=== PATIENT | male | born 1940 | race Caucasian/White ===

== ENCOUNTER 2021-03-11 18:05 | Inpatient (IN) | payer MEDICARE, MEDICAID, SELFPAY ==
[~2021-03-11] VITALS: Ht 172.7 cm; Wt 49.9 kg
[2021-03-11 18:05] VITALS: BP_SYST 153
--- NOTE | 2021-03-11 18:05 | NUR ---
Placed in room 2 . Placed on engine monitor, blood pressure machine and pulse oximeter. To gown for exam. Side rails up. Report given to DARIO VILLAFUERTE.
--- NOTE | 2021-03-11 18:07 | NUR ---
Patient transported to radiology via GURNEY, accompanied by STAFF.
[2021-03-11] MEDS ORDERED: ASPIRIN 325 MG TABLET PO ONE (18:30)
[2021-03-11] MEDS ORDERED: ASPIRIN 300 MG/SUPP.RECT SUPP RC ONE (18:45)
[2021-03-11 18:53] LABS: BASOPHILS # (AUTO) 0.1 K/uL (0.0-0.2); BASOPHILS % (AUTO) 1.1 % (0.0-2.0); EOSINOPHILS # (AUTO) 0.3 K/uL (0.0-0.4); EOSINOPHILS % (AUTO) 2.2 % (0.0-4.0); HEMATOCRIT 40.6 % (36-54); HEMOGLOBIN 13.3 g/dL (14.0-18.0); LYMPHOCYTES % (AUTO) 17.8 % (20.5-51.5); MEAN CORPUSCULAR HEMOGLOBIN 29 pg (27-31); MEAN CORPUSCULAR HGB CONC 33 % (32-36); MEAN CORPUSCULAR VOLUME 88 fL (79.0-98.0); MONOCYTES # (AUTO) 0.9 K/uL (0.0-1.0); MONOCYTES % (AUTO) 7.7 % (1.7-9.3); NEUTROPHILS # (AUTO) 8.2 K/uL (1.8-7.7); NEUTROPHILS % (AUTO) 71.2 % (40.0-70.0); PLATELET COUNT (AUTO) 138 K/uL (130-430); RED BLOOD CELL COUNT(AUTO) 4.62 MIL/uL (4.2-6.2); RED CELL DISTRIBUTION WIDTH 14.6 % (9.0-15.0); WHITE BLOOD COUNT (AUTO) 11.5 K/uL (4.8-10.8)
[2021-03-11 19:07] LABS: CALCIUM 8.5 mg/dL (8.4-11.0); CHLORIDE 97 mmol/L (98-107); CREATININE 0.73 mg/dL (0.55-1.30); GLUCOSE 83 mg/dL (70-99); POTASSIUM 3.6 mmol/L (3.5-5.1); SODIUM SERUM 135 mmol/L (136-145); UREA NITROGEN, BLOOD 14 mg/dL (8-21)
[2021-03-11 19:15] LABS: ALANINE AMINOTRANSFERASE 26 U/L (12-78); ALBUMIN 3.2 g/dL (3.4-4.8); ASPARTATE AMINOTRANSFERASE 20 U/L (10-37); TOTAL BILIRUBIN 0.7 mg/dL (0.0-1.0)
--- NOTE | 2021-03-11 19:16 | NUR ---
report to [facility]
[2021-03-11 19:19] LABS: ANION GAP < 3 (5-15)
--- NOTE | 2021-03-11 20:22 | NUR ---
191 Received report to assume pt care. Pt is resting on gurney, asleep in nad. Vss. Pt is lethargic, moans to painful stimuli. Pt able to move all extremities, but unable to assess strenght. Generalized weakness throughout. Resp are e/u. O2 sat 97% on 2 L NC. Pt has hx of COPD. Safety measures in place. Call light within reach. 20:24 Consent for CTA signed by Dr. Carter and myself. Consent received by daughter Kacy Virgen [phone]. 20G to RT FA started for CTA. Pt transported to CT at this time.
--- NOTE | 2021-03-11 21:21 | NUR ---
COVID SWAB PERFORMED AT BEDSIDE AND SENT TO LAB
[2021-03-11] MEDS ORDERED: ACET325T PO (22:21)
[2021-03-11] MEDS ORDERED: AZIT500T3 PO (22:21)
[2021-03-11] MEDS ORDERED: HYT1 PO (22:21)
[2021-03-11] MEDS ORDERED: PRO40 PO (22:21)
[2021-03-11] MEDS ORDERED: MELA5TAB3 SL (22:21)
[2021-03-11] MEDS ORDERED: ASPI-1393 PO (22:21)
[2021-03-11] MEDS ORDERED: FLO44 INH (22:21)
[2021-03-11] MEDS ORDERED: TAMS-11 PO (22:21)
[2021-03-11] MEDS ORDERED: IBUP-1619 PO (22:21)
[2021-03-11] MEDS ORDERED: DILT120C89 PO (22:21)
[2021-03-11] MEDS ORDERED: PRED50TA PO (22:21)
[2021-03-11] MEDS ORDERED: LIP40 PO (22:21)
[2021-03-11] MEDS ORDERED: TIOT18CA3 IH (22:21)
[2021-03-11] MEDS ORDERED: LISI-209 PO (22:21)
[2021-03-11] MEDS: KCL 20 mEq in D5/0.45NS 1000mL 1,000 ML IV SCH (22:30)
--- NOTE | 2021-03-11 22:30 | NUR ---
No change in mental status. Pt remains lethargic, responsive to painful stimuli. Incomprehensible sounds. Vss. Resp are e/u. at bedside and updated on POC. Safety measures in place. Will contiue to monitor.
--- NOTE | 2021-03-12 | NUR ---
Pt is resting on gurney, asleep in nad. Vss. No change in mental status. Pt remains drowsy, arousable to painful stimuli. Purposeful movements. Resp are e/u and equal chest rise & fall. Safety measures in place. Will continue to monitor.
[2021-03-12] MEDS: AZITHROMYCIN 250 MG TABLET PO SCH ×2 (01:12→20:33)
[2021-03-12] MEDS: ENOXAPARIN SODIUM 40 MG/0.4 ML SYRINGE SUBCUT SCH ×2 (01:12→20:37)
--- NOTE | 2021-03-12 01:23 | NUR ---
Pt is now awake, a/o x4, GCS of 15. Mild slurred speech noted, otherwise pt moving all extremities equally with mild generalized weakness. denies any complaints. NIHSS repeated. Vss. Resp are e/u. Pt assisted to side of bed to use urinal. Pt voided and urine sample sent to lab. Safety meaures in place. Pt now has admission bed. Will transport at this time.
--- NOTE | 2021-03-12 01:37 | NUR ---
ADMIT NOTE Received pt from ER to the floor with a diagnosis of CVA. Admission process initiated. patient oriented to pain management, safety and call light-teach back done.
[2021-03-12 01:45] VITALS: BP_SYST 135
[2021-03-12 01:45] LABS: BILIRUBIN,URINE NEGATIVE (NEGATIVE); BLOOD, URINE NEGATIVE (NEGATIVE); CLARITY/URINE CLEAR (CLEAR); COLOR,URINE YELLOW (YELLOW); GLUCOSE,URINE NEGATIVE (NEGATIVE); KETONES,URINE NEGATIVE (NEGATIVE); LEUKOCYTE ESTERASE ,URINE NEGATIVE (NEGATIVE); NITRITE, URINE NEGATIVE (NEGATIVE); PROTEIN URINE NEGATIVE (NEGATIVE)
--- NOTE | 2021-03-12 01:45 | NUR ---
report given to Perla in Tele. Pt transported to room 132. All questions answered.
[2021-03-12 01:56] LABS: BARBITURATE, URINE NEGATIVE (NEG <=200); BENZODIAZEPINE, URINE NEGATIVE (NEG <=150); CANNABINOID, URINE NEGATIVE (NEG <=50); COCAINE, URINE NEGATIVE (NEG <=150); METHAMPHETAMINES SCREEN,URINE NEGATIVE (NEG <=500); OPIATE, URINE NEGATIVE (NEG <=100); PHENCYCLIDINE SCREEN,URINE NEGATIVE (NEG <=25); UR TRICYCLIC ANTIDEPRESSANTS NEGATIVE (NEG <=300); URINE AMPHETAMINE NEGATIVE (NEG <=500); URINE METHADONE POSITIVE (NEG <=200); URINE OXYCODONE SCREEN NEGATIVE (NEG <=100); URINE PROPOXYPHENE SCREEN NEGATIVE (NEG <=300)
--- NOTE | 2021-03-12 02:00 | NUR ---
Initial RN notes Pt AAOx4, VSS, no s/s distress noted. O2 sat 97% on 3L via NC. Pt states he is allergic to PCN, updated as needed. IVF continued on R. FA 20G clear and patent. Instructed pt to call for assistance out of bed. Bed low, locked, siderails up x3, alarm on. Pt uses urinal. To monitor.
[2021-03-12] MEDS: ACETAMINOPHEN 325 MG TABLET PO SCH ×6 (03:00→22:09)
[2021-03-12] MEDS ORDERED: IBUPROFEN 200 MG TABLET PO SCH (06:00)
--- NOTE | 2021-03-12 06:05 | NUR ---
Closing notes Pt AAOx4, no s/s distress noted. Pt able to swallow pills with sip of water, no coughing noted. Aspiration precaution maintained. IVF infusing at ordered rate R. FA 20G clear and patent. Call light within reach. Bed low, locked, siderails up x3, alarm on. To endorse to AM nurse.
--- NOTE | 2021-03-12 07:40 | NUR ---
CONSULTATION PAGED/CALLED Reason for Consultation: [] CVA Person Who was Notified: [] DR NEVAEH ANGELES Consulting Physician: [] DR NEVAEH ANGELES Integration Manager Specialty: [] NEURO Ordering Physician: [] DR ELIZONDO
[2021-03-12 08:00] VITALS: BP_SYST 108
[2021-03-12] MEDS ORDERED: IPRATROPIUM BROM 0.5 MG/2.5 ML VIAL.NEB (ATROVENT) INH SCH (08:00)
[2021-03-12] MEDS ORDERED: BUDESONIDE 0.5 MG/2 ML AMPUL.NEB INH SCH (08:00)
--- NOTE | 2021-03-12 08:00 | NUR ---
Opening notes: Pt AOx4, no s/s distress noted. Aspiration precaution and NPO status maintained. IVF infusing at ordered rate R. FA 20G clear and patent. Call light within reach. Bed low, locked, side rails up x3, alarm on, will continue to monitor.
[2021-03-12] MEDS ORDERED: TIOTROPIUM BROMIDE 18 mcg/INHALATION (CAPSULE) IH SCH (09:00)
[2021-03-12] MEDS: ATORVASTATIN 20 MG TABLET PO SCH (09:32)
[2021-03-12] MEDS: DILTIAZEM HCL 120 MG CAP.SR.24H PO SCH (09:37)
[2021-03-12] MEDS: ASPIRIN 81 MG TABLET(ECOTRIN) PO SCH (09:37)
[2021-03-12] MEDS: TERAZOSIN HCL 1 MG CAPSULE (HYTRIN) PO SCH (09:37)
[2021-03-12] MEDS: PANTOPRAZOLE SODIUM 40 MG TAB PO SCH (09:37)
[2021-03-12] MEDS: lisinopriL 5 MG TABLET PO SCH (09:38)
[2021-03-12] MEDS: TAMSULOSIN HCL 0.4 MG CAP PO SCH (09:38)
[2021-03-12] MEDS: predniSONE 10 MG TABLET PO SCH (09:38)
--- NOTE | 2021-03-12 09:48 | NUR ---
Nutrition Update Elvis Scale 14 noted. Pt admitted for CVA. Diet: 2 gm Na BMI: 16 kg/m2 RD to follow per nutrition care standards.
[2021-03-12 12:00] VITALS: BP_SYST 133
[2021-03-12] MEDS: KCL 20 mEq in D5/0.45NS 1000mL 1,000 ML IV SCH (13:15)
[2021-03-12] MEDS ORDERED: METHADONE HCL 10 MG TABLET PO ONE (13:45)
[2021-03-12] MEDS: IBUPROFEN 600 MG TABLET PO SCH ×2 (14:32→22:09)
[2021-03-12 16:00] VITALS: BP_SYST 97
--- NOTE | 2021-03-12 18:42 | NUR ---
Closing Notes: Pt AOx4, no s/s distress noted. IVF infusing at ordered rate R. FA 20G clear and patent. Fall and safety precautions in place. Call light within reach. Bed low, locked, side rails up x3, will endorse to night monitor.
[2021-03-12 20:00] VITALS: BP_SYST 124
--- NOTE | 2021-03-12 22:00 | NUR ---
ROUNDING NOTES Patient resting in bed - no s/s pain or distress noted. Respirations even and unlabored - head of bed elevated 4L NC. IV site patent - no s/s redness, infection, or infiltration. Bed locked and in lowest position. Call light within reach. Bed alarm on.
[2021-03-13 00:34] VITALS: BP_SYST 90
[2021-03-13] MEDS: KCL 20 mEq in D5/0.45NS 1000mL 1,000 ML IV SCH ×2 (01:44→14:41)
[2021-03-13] MEDS: ACETAMINOPHEN 325 MG TABLET PO SCH ×3 (03:46→14:40)
--- NOTE | 2021-03-13 04:00 | NUR ---
ROUNDING NOTES Patient resting in bed - no s/s pain or distress noted. Respirations even and unlabored - head of bed elevated 4L NC. IV site patent - no s/s redness, infection, or infiltration. Bed locked and in lowest position. Call light within reach. Bed alarm on. patient linens changed approximately at this time
[2021-03-13] MEDS: IBUPROFEN 600 MG TABLET PO SCH ×2 (06:03→14:40)
--- NOTE | 2021-03-13 08:00 | NUR ---
Patient stable; resting quietly in bed with no distress noted at this time.
[2021-03-13] MEDS ORDERED: METHADONE HCL 10 MG TABLET PO SCH (09:00)
[2021-03-13] MEDS: TERAZOSIN HCL 1 MG CAPSULE (HYTRIN) PO SCH (09:09)
[2021-03-13] MEDS: ASPIRIN 81 MG TABLET(ECOTRIN) PO SCH (09:10)
[2021-03-13] MEDS: predniSONE 10 MG TABLET PO SCH (09:11)
[2021-03-13] MEDS: lisinopriL 5 MG TABLET PO SCH (09:12)
[2021-03-13] MEDS: ATORVASTATIN 20 MG TABLET PO SCH (09:13)
[2021-03-13] MEDS: DILTIAZEM HCL 120 MG CAP.SR.24H PO SCH (09:14)
[2021-03-13 09:15] VITALS: BP_SYST 138
[2021-03-13] MEDS: PANTOPRAZOLE SODIUM 40 MG TAB PO SCH (09:15)
[2021-03-13] MEDS: TAMSULOSIN HCL 0.4 MG CAP PO SCH (09:15)
--- NOTE | 2021-03-13 09:15 | NUR ---
Scheduled medications given per order. Patient stable; resting comfortably in bed with no distress noted. Addendum: 03/13/21 at 0924 by Stephanie Gerard RN Emptied 300mls of clear, abhijeet urine from urinal.
--- NOTE | 2021-03-13 10:00 | NUR ---
Patient taken in stable condition via wheelchair to [facility] for MRI.
--- NOTE | 2021-03-13 10:45 | NUR ---
Patient returned to unit in stable condition.
[2021-03-13 13:25] VITALS: BP_SYST 120
--- NOTE | 2021-03-13 13:25 | NUR ---
Patient resting quietly in bed with no complaint of pain or discomfort. Stable.
--- NOTE | 2021-03-13 14:40 | NUR ---
Scheduled medications given per order. Patient stable; resting comfortably in bed with no distress noted.
[2021-03-13 16:30] VITALS: BP_SYST 130
--- NOTE | 2021-03-13 16:30 | NUR ---
Patient stable; resting comfortably in bed with no distress noted.
--- NOTE | 2021-03-13 16:48 | NUR ---
Dietitian Recommendations * 2 gm Na diet, Ensure Enlive TID, Shashank BID (supplements yield 1230 kcal/day, 65 gm protein/day) * Encourage increase PO intakes LP, RD Please refer to Nutrition Assessment for details. Addendum: 03/13/21 at [address] Amended: Links added.
--- NOTE | 2021-03-13 18:00 | NUR ---
Patient stable; resting comfortably in bed with Dr. Swanson at bedside.
[2021-03-13 18:51] VITALS: BP_SYST 130
== END 2021-03-14 00:36 | disposition home or self-care (01) | DRG 69 ==
LOC: SED 18:05 → STU 21:44
PROVIDERS: ADMIT Family Medicine; ATTEND Family Medicine
DX: G45.9 Transient cerebral ischemic attack, unspecified (principal); J44.9 Chronic obstructive pulmonary disease, unspecified; R47.81 Slurred speech; N40.0 Benign prostatic hyperplasia without lower urinary tract symptoms; I10 Essential (primary) hypertension; M19.90 Unspecified osteoarthritis, unspecified site; F17.200 Nicotine dependence, unspecified, uncomplicated; Z20.822 Contact with and (suspected) exposure to COVID-19
CPT/HCPCS: 36415; 70450-TC; 70496; 70498; 70551; 71045; 76376; 80048; 80053; 80307; 81003; 84484; 85025; 85610-TC; 85730-TC; 86886; 86900; 86901; 93005; 97116-GP; 97530-GP; 99285; G0378; J1650; J7512; Q0144